=== PATIENT | female | born 1960 | race Caucasian/White ===

== ENCOUNTER → 2018-01-05 | Outpatient (CLI) | payer BC, OTHER ==
--- NOTE | 2018-01-05 17:43 | Diagnostic Imaging Report ---
PROCEDURE: US abdomen complete. TECHNIQUE: Multiple real-time grayscale images were obtained over the abdomen in various projections. INDICATION: Elevated liver enzymes. FINDINGS: Liver is upper limits of normal in size at 18 cm. No discrete liver mass is identified. Gallbladder is without stones. There is a small gallbladder polyp. No wall thickening is seen. No pericholecystic fluid or biliary ductal dilatation is identified. Pancreas is obscured by bowel gas. The spleen is normal in size. Aorta is non-aneurysmal. IVC is unremarkable. Right and left kidneys are without calculi or hydronephrosis. There is no ascites. IMPRESSION: Essentially unremarkable abdominal ultrasound. There is no evidence of cholelithiasis or acute cholecystitis. Dictated by: Dictated on workstation # [id number]
== END ==
LOC: RAD 08:56
PROVIDERS: ATTEND Pediatrics
DX: R79.89 Other specified abnormal findings of blood chemistry (principal)
CPT/HCPCS: 76700

== ENCOUNTER → 2018-12-29 | Outpatient (CLI) | payer BC, OTHER ==
--- NOTE | 2018-12-29 14:26 | Diagnostic Imaging Report ---
INDICATION: Acquired deformity of the musculoskeletal system. COMPARISON: None. FINDINGS: AP lumbar spine: [BMD (g/cm2): 0.779] [T-Score: -3.8] [Z-Score: -2.8] [BMD Previous: na] [BMD % Change: na] LT Hip Neck: [BMD (g/cm2): 0.693] [T-Score: -2.9] [Z-Score: -1.5] LT Hip Total: [BMD (g/cm2):0.713] [T-Score:-2.7] [Z-Score: -1.8] [BMD Previous: na] [BMD % Change: na] RT Hip Neck: [BMD (g/cm2):0.613] [T-Score:-3.5] [Z-Score:-2.2] RT Hip Total: [BMD (g/cm2):0.659] [T-score:-3.1] [Z-Score:-2.2] [BMD Previous:na] [BMD % Change:na] *Indicates significant change from prior examination based on 95% confidence level. World Health Organization criteria for BMD interpretation classify patients as Normal (T-score at or above -1.0), Osteopenic (T-score between -1.0 and -2.5) or Osteoporotic (T-score at or below -2.5). LIMITATIONS AND MODIFICATION: None. FRACTURE RISK (FRAX SCORE): The ten year probability of (%): Major Osteoporotic Fracture: [21.5] Hip Fracture: [13.3] IMPRESSION: 1. Osteoporosis. 2. Baseline examination. 3. See below National Osteoporosis Foundation guidelines on when to potentially initiate pharmacologic therapy. Based on the National Osteoporosis Foundation Guidelines, pharmacologic treatment should be initiated in any of the following, unless clinical conditions suggest otherwise: * Any patient with prior fragility fracture of the hip or vertebrae. A spine fracture indicates 5X risk for subsequent spine fracture and 2X risk for subsequent hip fracture. * Osteoporosis (T-score <-2.5). * Postmenopausal women and men age 50 and older with low bone mass/osteopenia (T-score between -1.0 and -2.5) by DXA and 10-year major osteoporotic fracture greater than 20% or a 10-year probability of hip fracture greater than 3%. These fracture risks are supplied above in the FRAX score, if applicable. * Clinician judgement and/or patient preferences may indicate treatment for people with 10-year fracture probabilities above or below these levels. Dictated by: Dictated on workstation # [id number]
== END ==
LOC: RAD 10:33
PROVIDERS: ATTEND Pediatrics
DX: M95.9 Acquired deformity of musculoskeletal system, unspecified (principal); M81.0 Age-related osteoporosis without current pathological fracture
CPT/HCPCS: 77080

== ENCOUNTER → 2020-06-13 | Outpatient (CLI) | payer MEDICARE ==
--- NOTE | 2020-06-13 17:13 | Diagnostic Imaging Report ---
INDICATION: Personal history of osteoporosis, adult bone fractures. COMPARISON: 12/29/2018 FINDINGS: AP Spine L1-L4: [BMD (g/cm2): 0.843] [T-Score: -3.0] [Z-Score: -1.8] [BMD Previous: 0.779] [BMD % Change: 8.2] LT Hip Neck: [BMD (g/cm2): 0.746] [T-Score: -2.1] [Z-Score: -0.9] LT Hip Total: [BMD (g/cm2):0.751] [T-Score:-2.0] [Z-Score: -1.1] [BMD Previous: 0.713] [BMD % Change: 5.3] RT Hip Neck: [BMD (g/cm2):0.698] [T-Score:-2.4] [Z-Score:-1.2] RT Hip Total: [BMD (g/cm2):0.708] [T-score:-2.4] [Z-Score:-1.4] [BMD Previous:0.659] [BMD % Change:7.4] *Indicates significant change from prior examination based on 95% confidence level. World Health Organization criteria for BMD interpretation classify patients as Normal (T-score at or above -1.0), Osteopenic (T-score between -1.0 and -2.5) or Osteoporotic (T-score at or below -2.5). LIMITATIONS AND MODIFICATION: None. FRACTURE RISK (FRAX SCORE): The ten year probability of (%): Major Osteoporotic Fracture: [18.2] Hip Fracture: [6.0] IMPRESSION: 1. Osteoporosis. 2. No significant change in bone mineral density since prior examination. 3. See below National Osteoporosis Foundation guidelines on when to potentially initiate pharmacologic therapy. Based on the National Osteoporosis Foundation Guidelines, pharmacologic treatment should be initiated in any of the following, unless clinical conditions suggest otherwise: * Any patient with prior fragility fracture of the hip or vertebrae. A spine fracture indicates 5X risk for subsequent spine fracture and 2X risk for subsequent hip fracture. * Osteoporosis (T-score <-2.5). * Postmenopausal women and men age 50 and older with low bone mass/osteopenia (T-score between -1.0 and -2.5) by DXA and 10-year major osteoporotic fracture greater than 20% or a 10-year probability of hip fracture greater than 3%. These fracture risks are supplied above in the FRAX score, if applicable. * Clinician judgement and/or patient preferences may indicate treatment for people with 10-year fracture probabilities above or below these levels. Dictated by: Dictated on workstation # [id number]
== END ==
LOC: RAD 14:02
PROVIDERS: ATTEND Pediatrics
DX: M81.0 Age-related osteoporosis without current pathological fracture (principal)
CPT/HCPCS: 77080

== ENCOUNTER 2021-05-03 18:16 | Emergency (ER) | payer MEDICARE ==
[~2021-05-03] VITALS: Ht 182 cm; Wt 56.0 kg
--- NOTE | 2021-05-03 18:22 | ED Upper Extremity ---
General Stated Complaint: FALL Source: patient Exam Limitations: no limitations History of Present Illness Date Seen by Provider: May 03, 2021 Time Seen by Provider: 18:21 Initial Comments To ER by EMS with reports of a fall at home landing on the right shoulder. He now has right shoulder pain. He slipped on some ice outside of his house. Did not hit his head no other injury. Onset: just prior to arrival Severity: moderate Pain/Injury Location: right shoulder Method of Injury: direct blow, fell Modifying Factors: Worse With Movement Allergies and Home Medications Allergies Coded Allergies: No Known Drug Allergies (Unverified , 05/03/21) Patient Home Medication List Home Medication List Reviewed: Yes Hydrocodone/Acetaminophen (Hydrocodone-Acetamin 5-325 mg) 1 Each Tablet, 1 TAB PO Q4H PRN for PAIN-MODERATE (5-7) Prescribed by: GUIDO ÁLVAREZ on 05/03/21 1900 Review of Systems Constitutional: see HPI EENTM: see HPI Respiratory: no symptoms reported Cardiovascular: no symptoms reported Genitourinary: no symptoms reported Musculoskeletal: see HPI Skin: no symptoms reported Psychiatric/Neurological: No Symptoms Reported Physical Exam Vital Signs Vital Signs - First Documented 05/03/21 18:16 Temp 36.0 Pulse 72 Resp 16 B/P (MAP) 137/88 (104) Pulse Ox 98 O2 Delivery Room Air Capillary Refill : Height, Weight, BMI Height: '" Weight: lbs. oz. kg; BMI Method: General Appearance: WD/WN, no apparent distress HEENT: PERRL/EOMI, normal ENT inspection Neck: non-tender, full range of motion Respiratory: no respiratory distress, no accessory muscle use Gastrointestinal: normal bowel sounds, non tender Elbow/Forearm: Right, swelling (Focal hematoma over the anterior right shoulder proximal humerus region) Wrist: Yes normal inspection, Yes non-tender Hand: normal inspection, non-tender Neurologic/Psychiatric: alert, normal mood/affect, oriented x 3 Skin: normal color, warm/dry Neurovascularly intact with normal sensation and brisk capillary refill at the fingertips. Progress/Results/Core Measures Results/Orders My Orders Orders - GUIDO ÁLVAREZ [facility] Hydrocodone/Apap 5/325 Tablet (Lortab 5 (05/03/21 18:30) Shoulder, Right, 3 Views (05/03/21 18:20) Rx-Hydrocodone/Apap 5-325 Mg (Rx-Vicodin (05/03/21 19:15) Medications Given in ED Current Medications Medications Dose Ordered Sig/Chelo Route Start Time Stop Time Status Last Admin Dose Admin Acetaminophen/ Hydrocodone Bitart 1 ea ONCE ONCE PO 05/03/21 18:30 05/03/21 18:31 DC 05/03/21 18:32 1 EA Vital Signs/I&O 05/03/21 18:16 Temp 36.0 Pulse 72 Resp 16 B/P (MAP) 137/88 (104) Pulse Ox 98 O2 Delivery Room Air Departure Communication (Admissions) 1858-We will provide him with a sling and pain medication to go home with. We will give him an orthopedic referral. [facility], [place] NAME: KIA NICHOLS [facility] REC#: [id number] PT STATUS: REG ER : 1960 PHYSICIAN: GUIDO ÁLVAREZ APRN ADMIT DATE: 05/03/21/ER Draft Date of Exam:05/03/21 SHOULDER, RIGHT, 3 VIEWS INDICATION: Fall on ice with shoulder pain. FINDINGS: There is an obliquely oriented acute fracture of the proximal humerus at its upper shaft near its junction with the neck. The major distal fragment shows slight lateral as well as mild to moderate posterior displacement. There is no dislocation of the glenohumeral joint. Humeral head, itself, appears intact. The scapula and glenoid intact. The clavicle and AC joints intact. The visualized right ribs, lung and pleura are unremarkable. IMPRESSION: Mildly displaced extra-articular proximal humeral fracture. Dictated on workstation # [id number] Dict: 05/03/21 1848 Trans: 05/03/211851 [facility] [id number] Interpreted by: KYLEIGH LOWERY Electronically signed by: Impression Primary Impression: Proximal humerus fracture Disposition: 01 HOME, SELF-CARE Condition: Stable Departure-Patient Inst. Decision time for Depature: 18:58 Referrals: BALBIR KHALIL MD, JULIE A MD (PCP/Family) Primary Care Physician KIA PISANO MD Patient Instructions: Upper Arm Fracture Add. Discharge Instructions: 1. Ice pack to the area for 1 hour every 2-3 hours for the next few days. Call an orthopedic surgeon of your choosing. Keep the arm in the sling at all times except when you are showering. Take the pain medication as directed. Scripts Hydrocodone/Acetaminophen (Hydrocodone-Acetamin 5-325 mg) 1 Each Tablet 1 TAB PO Q4H PRN for PAIN-MODERATE (5-7), #14 TAB Prov: GUIDO ÁLVAREZ APRN 05/03/21 GUIDO ÁLVAREZ APRN May 03, 2021 18:22
[2021-05-03] MEDS ORDERED: HYDROcodone/APAP 5 MG/325 MG (LORTAB) TAB PO ONE (18:30)
--- NOTE | 2021-05-03 18:52 | Diagnostic Imaging Report ---
INDICATION: Fall on ice with shoulder pain. FINDINGS: There is an obliquely oriented acute fracture of the proximal humerus at its upper shaft near its junction with the neck. The major distal fragment shows slight lateral as well as mild to moderate posterior displacement. There is no dislocation of the glenohumeral joint. Humeral head, itself, appears intact. The scapula and glenoid intact. The clavicle and AC joints intact. The visualized right ribs, lung and pleura are unremarkable. IMPRESSION: Mildly displaced extra-articular proximal humeral fracture. Dictated by: Dictated on workstation # [id number]
[2021-05-03] MEDS ORDERED: ACHD5005 PO (18:59)
[2021-05-03 19:10] VITALS: BP 132/84
== END 2021-05-03 19:11 | disposition home or self-care (01) ==
LOC: EDUNIT# 18:16 → EDSEX 18:18 → ER 18:18
DX: S42.291A Other displaced fracture of upper end of right humerus, initial encounter for closed fracture (principal); W00.9XXA Unspecified fall due to ice and snow, initial encounter; Y92.009 Unspecified place in unspecified non-institutional (private) residence as the place of occurrence of the external cause
CPT/HCPCS: 73030; 82947

== ENCOUNTER 2022-04-28 01:07 | Emergency (ER) | payer MEDICARE ==
[~2022-04-28] VITALS: Ht 180 cm; Wt 53.0 kg
[~2022-04-28 01:07] MED LIST: ACHD5005 PO
[2022-04-28] MEDS ORDERED: NS IV 500 ML 500 ML IV STA (01:21)
--- NOTE | 2022-04-28 01:26 | ED Abdominal Pain ---
General Chief Complaint: Abdominal/GI Problems Stated Complaint: ABD PAIN Nursing Triage Note: TO ED [facility] INTO ER FROM AMBULANCE BAY TO ROOM 7 WITH C/O ABD PAIN THAT STARTED AT 1730. STATES HE TOOK ASPIRIN AT 2300 FOR PAIN WITHOUT RELIEF. PT STATES AT 2030 HE "PASSED OUT" FROM THE PAIN AND ABRASION IN NOTED UNDER RIGHT EYE THAT PT STATES IS NEW. Source of Information: Patient Exam Limitations: No Limitations History of Present Illness Date Seen by Provider: Apr 28, 2022 Time Seen by Provider: 01:15 Initial Comments Patient is a 61-year-old who presents to the emergency room with a chief complaint of left flank pain onset about 530 this evening. Patient states the pain gradually worsened throughout the evening. He took some aspirin this evening to regular strength. He is also had 5 or 6 beers. He drinks daily. History of diabetes and HIV. Primary care doctor is Marivel Álvarez. He states nothing makes the pain any better or any worse. He tried to sleep this evening but could not so finally called an ambulance. Patient states at 1 point he got up to go to the bathroom, passed out and hit his face on the carpet sliding across the floor. He did sustain an abrasion and contusion around the left eye. Currently rates his pain a "7". He is not nauseous. His last bowel movement was at midnight, he states it was "normal" nonblack nonbloody. The pain has radiated across his abdomen and down into his scrotum. Currently all in the left flank. He has had no prior abdominal surgeries. No history of kidney stones. He has had pancreatitis in the past. Timing/Duration: 4-6 Hours Severity/Quality: Moderate ("7"), Cramping Location: LLQ, Flank Radiation: Groin Activities at Onset: None Associated Symptoms: Denies Symptoms Allergies and Home Medications Allergies Coded Allergies: No Known Drug Allergies (Unverified , 05/03/21) Patient Home Medication List Home Medication List Reviewed: Yes Hydrocodone/Acetaminophen (Hydrocodone-Acetamin 5-325 mg) 1 Each Tablet, 1 TAB PO Q4H PRN for PAIN-MODERATE (5-7) Prescribed by: GUIDO ÁLVAREZ on 05/03/21 1900 Review of Systems Review of Systems Constitutional: see HPI EENTM: No Symptoms Reported Respiratory: No Symptoms Reported Cardiovascular: No Symptoms Reported Gastrointestinal: Abdominal Pain; Denies Diarrhea, Denies Nausea, Denies Vomiting Genitourinary: Denies No Symptoms Reported Musculoskeletal: No no symptoms reported Skin: No no symptoms reported Psychiatric/Neurological: Denies No Symptoms Reported All Other Systems Reviewed Negative Unless Noted: Yes Past Ixzlpte-Maqjsf-Nodvze Hx Patient Social History Tobacco Use?: Yes Tobacco type used: Cigarettes Smoking Status: Current Everyday Smoker Substance use?: No Alcohol Use?: Yes Alcohol type: Beer Alcohol Frequency: Daily Immunizations Up To Date Influenza Vaccine Up-to-Date: Yes; Up-to-Date First/Initial COVID19 Vaccinat: UNKNOWN Second COVID19 Vaccination Abel: UNKNOWN Third COVID19 Vaccination Date: UNKNOWN Physical Exam Vital Signs Vital Signs - First Documented 04/28/22 01:07 Temp 35.7 Pulse 67 Resp 16 B/P (MAP) 134/82 (99) Pulse Ox 98 O2 Delivery Room Air Capillary Refill : Less Than 3 Seconds Height/Weight/BMI Height: '" Weight: lbs. oz. kg; 16.00 BMI Method: General Appearance: no apparent distress, thin HEENT: PERRL/EOMI, pharynx normal, other (periorbital ecchymoses with abrasion inferior to right lower lid; EOMI) Neck: non-tender, supple Respiratory: lungs clear, normal breath sounds, no respiratory distress, no accessory muscle use Cardiovascular: regular rate, rhythm, other (2+ bilateral radial pulses) Gastrointestinal: normal bowel sounds, non tender, soft Extremities: normal range of motion, non-tender, normal inspection, no pedal ed vita Back: CVA tenderness (L) Neurologic/Psychiatric: alert, normal mood/affect, oriented x 3 Skin: normal color, warm/dry, other (as above right eye) Progress/Results/Core Measures Results/Orders Lab Results Laboratory Tests Test 04/28/22 01:30 04/28/22 01:35 Range/Units Urine Color YELLOW Urine Clarity CLEAR Urine pH 6.0 5-9 Urine Specific [place] >=1.030 1.016-1.022 Urine Protein NEGATIVE NEGATIVE Urine Glucose (UA) 3+ H NEGATIVE Urine Ketones NEGATIVE NEGATIVE Urine Nitrite NEGATIVE NEGATIVE Urine Bilirubin NEGATIVE NEGATIVE Urine Urobilinogen 0.2 < = 1.0 MG/DL Urine Leukocyte Esterase NEGATIVE NEGATIVE Urine RBC (Auto) NEGATIVE NEGATIVE Urine RBC NONE /HPF Urine WBC NONE /HPF Urine Crystals NONE /LPF Urine Bacteria NEGATIVE /HPF Urine Casts NONE /LPF Urine Mucus NEGATIVE /LPF Urine Culture Indicated NO White Blood Count 6.7 4.3-11.0 10^3/uL Red Blood Count 3.65 L 4.30-5.52 10^6/uL Hemoglobin 14.0 13.3-17.7 g/dL Hematocrit 39 L 40-54 % Mean Corpuscular Volume 108 H 80-99 fL Mean Corpuscular Hemoglobin 38 H 25-34 pg Mean Corpuscular Hemoglobin Concent 36 32-36 g/dL Red Cell Distribution Width 12.6 10.0-14.5 % Platelet Count 189 130-400 10^3/uL Mean Platelet Volume 10.0 9.0-12.2 fL Immature Granulocyte % (Auto) 0 % Neutrophils (%) (Auto) 72 42-75 % Lymphocytes (%) (Auto) 20 12-44 % Monocytes (%) (Auto) 6 0-12 % Eosinophils (%) (Auto) 1 0-10 % Basophils (%) (Auto) 1 0-10 % Neutrophils # (Auto) 4.9 1.8-7.8 10^3/uL Lymphocytes # (Auto) 1.3 1.0-4.0 10^3/uL Monocytes # (Auto) 0.4 0.0-1.0 10^3/uL Eosinophils # (Auto) 0.1 0.0-0.3 10^3/uL Basophils # (Auto) 0.0 0.0-0.1 10^3/uL Immature Granulocyte # (Auto) 0.0 0.0-0.1 10^3/uL Sodium Level 129 L 135-145 MMOL/L Potassium Level 4.6 3.6-5.0 MMOL/L Chloride Level 99 98-107 MMOL/L Carbon Dioxide Level 14 L 21-32 MMOL/L Anion Gap 16 H 5-14 MMOL/L Blood Urea Nitrogen 10 7-18 MG/DL Creatinine 1.09 0.60-1.30 MG/DL Estimat Glomerular Filtration Rate 77 BUN/Creatinine Ratio 9 Glucose Level 123 H 70-105 MG/DL Calcium Level 8.1 L 8.5-10.1 MG/DL Corrected Calcium 8.4 L 8.5-10.1 MG/DL Total Bilirubin 0.3 0.1-1.0 MG/DL Aspartate Amino Transf (AST/SGOT) 21 5-34 U/L Alanine Aminotransferase (ALT/SGPT) 22 0-55 U/L Alkaline Phosphatase 99 40-136 U/L Total Protein 6.6 6.4-8.2 GM/DL Albumin 3.6 3.2-4.5 GM/DL Lipase < 4 L 8-78 U/L My Orders Orders - MEGGAN DELUCA MD Ed Iv/Invasive Line Start (04/28/22 01:21) Cbc With Automated Diff (04/28/22 01:21) Comprehensive Metabolic Panel (04/28/22 01:21) Lipase (04/28/22 01:21) Urinalysis (04/28/22 01:21) Ns Iv 500 Ml (Sodium Chloride 0.9%) (04/28/22 01:21) Fentanyl Inj (Sublimaze Injection) (04/28/22 01:30) Medications Given in ED Current Medications Medications Dose Ordered Sig/Chelo Route Start Time Stop Time Status Last Admin Dose Admin Fentanyl Citrate 25 mcg ONCE ONCE IVP 04/28/22 01:30 04/28/22 01:31 DC 04/28/22 01:36 25 MCG Vital Signs/I&O 04/28/22 04/28/22 01:07 02:16 Temp 35.7 Pulse 67 69 Resp 16 B/P (MAP) 134/82 (99) 151/48 (82) Pulse Ox 98 O2 Delivery Room Air Blood Pressure Mean: 99 Progress Progress Note : Time: 02:23 Progress Note Patient seen and evaluated by me, 61-year-old with left flank pain. Evaluation today includes physical exam, CBC, Chem-12 with lipase, urinalysis. Differential diagnosis based on history and physical exam, diverticulitis, renal colic/renal stone, musculoskeletal pain, dehydration, acute pancreatitis. Patient's labs reviewed, CBC is normal, no elevated white blood cell count or left shift. Chemistry shows mild dehydration with a depressed CO2 at 14. Slightly hyponatremic with a serum sodium of 129, normal potassium, normal liver functions, negative lipase. Urine is quite concentrated with specific gravity greater than 1.030. Patient is treated with 25 mcg of fentanyl and 500 cc of normal saline. He has improvement in his pain. His exam is benign other than mild CVA tenderness. He certainly does not have acute abdomen on physical exam, no distention, involuntary guarding, rebound tenderness. I do not believe there is an indication at this point for CT of the abdomen pelvis. Patient is counseled on fluid intake. Advised to take Tylenol and/or ibuprofen as needed for pain, monitor symptoms and if worsening return to the emergency department for reevaluation and possible CAT scan. He verbalized understanding of the plan of care and is agreeable. All questions are sought and answered. Patient is stable for discharge. Departure Impression Primary Impression: Abdominal pain Qualified Codes: R10.9 - Unspecified abdominal pain Additional Impression: Orbital contusion Qualified Codes: S05.11XA - Contusion of eyeball and orbital tissues, right eye, initial encounter Disposition: HOME, SELF-CARE Condition: Improved Departure-Patient Inst. Decision time for Depature: 02:25 Referrals: MARIVEL ÁLVAREZ MD (PCP/Family) Primary Care Physician Patient Instructions: Abdominal Pain, Adult ED Add. Discharge Instructions: Continue your daily medications as prescribed. You can take over the counter Ibuprofen or tylenol as needed for pain. Do not take tylenol if drinking alcohol. Always take ibuprofen with food. If you develop worse pain, especially with fever, vomiting, blood in your urine or stool, please come back to the Emergency Department for re-evaluation. Please call your primary care doctor's office on Friday for a follow up appointment. Copy Copies To 1: MARIVEL ÁLVAREZ MD, KATHRYN M MD Apr 28, 2022 01:26
[2022-04-28] MEDS ORDERED: fentaNYL INJ 100 MCG/2 ML AMP IVP ONE (01:30)
[2022-04-28 01:38] LABS: BILIRUBIN,URINE NEGATIVE (NEGATIVE); CLARITY,URINE CLEAR; COLOR,URINE YELLOW; GLUCOSE, URINE (UA) 3+ (NEGATIVE); KETONES,URINE NEGATIVE (NEGATIVE); LEUKOCYTE ESTERASE ,URINE NEGATIVE (NEGATIVE); NITRITE,URINE NEGATIVE (NEGATIVE); PROTEIN,URINE NEGATIVE (NEGATIVE)
[2022-04-28 01:47] LABS: BACTERIA,URINE NEGATIVE /HPF
[2022-04-28 01:48] LABS: BASOPHILS % (AUTO) 1 % (0-10); EOSINOPHILS # (AUTO) 0.1 10^3/uL (0.0-0.3); EOSINOPHILS % (AUTO) 1 % (0-10); HEMATOCRIT 39 % (40-54); LYMPHOCYTES # (AUTO) 1.3 10^3/uL (1.0-4.0); LYMPHOCYTES % (AUTO) 20 % (12-44); MEAN CORPUSCULAR HEMOGLOBIN 38 pg (25-34); MEAN CORPUSCULAR HGB CONC 36 g/dL (32-36); MEAN CORPUSCULAR VOLUME 108 fL (80-99); MONOCYTES # (AUTO) 0.4 10^3/uL (0.0-1.0); MONOCYTES % (AUTO) 6 % (0-12); NEUTROPHILS # (AUTO) 4.9 10^3/uL (1.8-7.8); NEUTROPHILS % (AUTO) 72 % (42-75); PLATELET COUNT 189 10^3/uL (130-400); WHITE BLOOD COUNT 6.7 10^3/uL (4.3-11.0)
[2022-04-28 01:59] LABS: ALBUMIN 3.6 GM/DL (3.2-4.5)
[2022-04-28 02:00] LABS: CHLORIDE 99 MMOL/L (98-107); POTASSIUM 4.6 MMOL/L (3.6-5.0); SODIUM 129 MMOL/L (135-145)
[2022-04-28 02:01] LABS: CALCIUM 8.1 MG/DL (8.5-10.1)
[2022-04-28 02:02] LABS: GLUCOSE 123 MG/DL (70-105); TOTAL PROTEIN 6.6 GM/DL (6.4-8.2)
[2022-04-28 02:03] LABS: CARBON DIOXIDE 14 MMOL/L (21-32)
[2022-04-28 02:04] LABS: BILIRUBIN,TOTAL 0.3 MG/DL (0.1-1.0)
[2022-04-28 02:05] LABS: ALKALINE PHOSPHATASE 99 U/L (40-136); CREATININE SERUM 1.09 MG/DL (0.60-1.30); GFR ESTIMATED 77
[2022-04-28 02:06] LABS: BUN/CREATININE RATIO 9
[2022-04-28 02:08] LABS: ALANINE AMINOTRANSFERASE 22 U/L (0-55)
[2022-04-28 02:09] LABS: LIPASE < 4 U/L (8-78)
[2022-04-28] MEDS ORDERED: KETOROLAC 15 MG/ML VIAL IVP ONE (02:45)
[2022-04-28 02:52] VITALS: BP 136/76
== END 2022-04-28 02:52 | disposition home or self-care (01) ==
LOC: EDUNIT# 01:08 → ER 01:09
DX: S05.11XA Contusion of eyeball and orbital tissues, right eye, initial encounter (principal); R10.32 Left lower quadrant pain; E87.1 Hypo-osmolality and hyponatremia; E86.0 Dehydration; F17.210 Nicotine dependence, cigarettes, uncomplicated; W22.8XXA Striking against or struck by other objects, initial encounter
CPT/HCPCS: 36415; 80053; 81000; 83690; 85025; 99283

== ENCOUNTER → 2022-05-20 | Outpatient (CLI) | payer MEDICARE | LOC: CARD 11:53 | PROVIDERS: ATTEND Pediatrics | DX: R55 Syncope and collapse (principal) | CPT/HCPCS: 93225; 93226 ==

== ENCOUNTER → 2022-05-21 | Outpatient (CLI) | payer MEDICARE ==
--- NOTE | 2022-05-21 15:53 | Diagnostic Imaging Report ---
PROCEDURE: MRI lumbar spine. TECHNIQUE: Multiplanar, multisequence MRI of the lumbar spine was performed without contrast. INDICATION: Low back pain. Compression fracture. COMPARISON: None FINDINGS: There is an acute compression fracture along the superior endplate of L3 with about 40% height loss. There is mild edema along the superior endplate. There is no retropulsion. There are Modic type I degenerative endplate changes at L2-L3. There is a chronic compression deformity of L1. There is no spondylolisthesis. The conus terminates in appropriate position. Soft tissues about the lumbar spine demonstrate no acute abnormality. T12-L1: No significant disc bulge. No spinal canal or foraminal stenosis. L1-L2: Mild disc bulge and facet arthropathy. No spinal canal or foraminal stenosis. L2-L3: Diffuse disc bulge and facet arthropathy and ligamentous infolding. Mild spinal canal narrowing. Moderate right and severe left foraminal stenosis. L3-L4: Diffuse disc bulge with facet arthropathy and ligamentous infolding. No spinal canal stenosis. Moderate bilateral foraminal stenosis. L4-L5: Diffuse disc bulge and facet arthropathy with ligamentous infolding. No spinal canal stenosis. Severe right and moderate left foraminal stenosis. L5-S1: Mild disc bulge. No spinal canal stenosis. Mild bilateral foraminal narrowing. IMPRESSION: 1. Acute compression fracture of L3 with 40% height loss. No retropulsion. 2. Chronic compression deformity of L1. 3. Multilevel degenerative changes with mild spinal canal narrowing at L2-L3. 4. Multilevel foraminal stenosis, most severe at L2-L3 on the left and L4-L5 on the right. Dictated by: Dictated on workstation # [id number]
== END ==
LOC: RAD 13:06
PROVIDERS: ATTEND Pediatrics
DX: M48.56XA Collapsed vertebra, not elsewhere classified, lumbar region, initial encounter for fracture (principal); M47.816 Spondylosis without myelopathy or radiculopathy, lumbar region; M51.36 Other intervertebral disc degeneration, lumbar region; M48.061 Spinal stenosis, lumbar region without neurogenic claudication
CPT/HCPCS: 72148

== ENCOUNTER → 2022-06-25 | Outpatient (CLI) | payer MEDICARE | LOC: CARD 10:00 | PROVIDERS: ATTEND Internal Medicine Cardiovascular Disease | DX: R55 Syncope and collapse (principal) | CPT/HCPCS: 93306 ==

== ENCOUNTER → 2022-07-30 | Outpatient (CLI) | payer MEDICARE ==
[~2022-07-30] VITALS: Ht 180 cm; Wt 50.0 kg
[~2022-07-30] MED LIST changes: +CATHETER FLUSH 10 ML SYR IVP PRN; +REGADENOSON 0.4 MG/5 ML SYR (LEXISCAN) IV ONE
[2022-07-30 09:08] VITALS: BP 130/82
== END ==
LOC: CARD 07:36
PROVIDERS: ATTEND Internal Medicine Cardiovascular Disease
DX: R94.31 Abnormal electrocardiogram [ECG] [EKG] (principal)
CPT/HCPCS: 78452; 93017